=== PATIENT | male | born 1980 | race Caucasian/White ===

== ENCOUNTER → 2020-01-12 | Outpatient (CLI) | payer OTHER ==
[~2020-01-12] MED LIST: ALBUTEROL INH; AMOX TR-K CLV1 EAC1 PO; ANUCORT-HC25 MG PR; CIALIS10 MG PO; FLOVENT DISKUS50 MCG; IBUPROFEN PO; LEVALBUTER1.25 MG/3 INH; MONTELUKAST SOD10 MG PO; NEXIUM40 MG PO; PROMETHAZINE HC25 M1 PO; TYLENOL # 31 EA PO; XOPENEX HFA15 GM INH
--- NOTE | 2020-01-12 09:19 | Diagnostic Imaging Report ---
Exam: Bone mineral density study. History: Osteopenia. Comparison: None Discussion: Evaluation of the left hip and lumbar spine was performed utilizing DEXA Hologic bone densitometer. The study is technically adequate. Left hip total bone mineral density: 0.901gm/cm2, T-score is -0.9, Z-score is -0.7. Left hip femoral neck bone mineral density: 0.853gm/cm2, T-score is -0.6, Z-score is -0.1. Lumbar spine total bone mineral density:0.961gm/cm2, T-score is-1.2, Z-score is -1.1. Impression: 1. Normal bone mineral density of the left hip, fracture risk is not increased. 2. Osteopenia of the lumbar spine, fracture risk is increased Least significant change (LSC) for bone mineral density as provided by sales manager [employer] is 0.023 g/cm2 for lumbar spine and 0.027 g/cm2 for total hip. 10 -year fracture risk per WHO Fracture Risk Assessment Tool (FRAX) for: Not reported because the patient is a man under the age of 50. The patient's fracture risk is compared to an age-matched control. Medical evaluation for secondary causes of low bone bone mineral density may be appropriate. Correlate clinically for the necessity and timing of the next bone mineral density study. Signed by: Dr. Jian Patel M.D. on 01/12/2020 9:16 AM
== END ==
LOC: DX 07:50
PROVIDERS: ATTEND Family Medicine
DX: M85.80 Other specified disorders of bone density and structure, unspecified site (principal)
CPT/HCPCS: 77080